=== PATIENT | male | born 1980 | race Caucasian/White ===

== ENCOUNTER 2017-09-05 12:07 | Emergency (ER) | payer MEDICAID ==
[~2017-09-05] VITALS: Ht 180.3 cm; Wt 81.8 kg
[2017-09-05] MEDS ORDERED: ONDANSETRON 2MG/ML, 2ML ONE (12:48)
[2017-09-05] MEDS ORDERED: morphine SULFATE 10 MG/ML, 1ML ONE (12:48)
[2017-09-05 12:58] LABS: HEMATOCRIT 50.2 % (39.2-51.8); WHITE BLOOD COUNT 10.6 x10^3/uL (3.4-10)
[2017-09-05] MEDS ORDERED: SODIUM CHLORIDE 0.9% 1,000ML IVBOLUS ONE (13:00)
[2017-09-05] MEDS ORDERED: SODIUM CHLORIDE FLUSH 10ML SYR IVF ONE (13:00)
[2017-09-05] MEDS ORDERED: MORPHINE SULFATE 4 MG/ML, 1ML IVPush PRN (13:00)
[2017-09-05] MEDS ORDERED: ONDANSETRON 2MG/ML, 2ML IVPush ONE (13:00)
[2017-09-05 13:12] LABS: ASPARTATE AMINO TRANSFERASE 25 U/L (15-37); BLOOD UREA NITROGEN 12 mg/dL (7-18)
[2017-09-05 15:01] VITALS: BP 128/76
== END 2017-09-05 15:15 | disposition home or self-care (01) ==
LOC: ED 14:01
DX: N20.2 Calculus of kidney with calculus of ureter (principal); R31.9 Hematuria, unspecified; I10 Essential (primary) hypertension
CPT/HCPCS: 36415; 71020; 74176; 80053; 81001; 83690; 85025; 96361; 96374; 96375; 99285; J2405; J7030

== ENCOUNTER 2020-10-09 10:18 | Emergency (ER) | payer MEDICAID ==
[~2020-10-09] VITALS: Ht 180.3 cm; Wt 80.0 kg
[2020-10-09] MEDS ORDERED: HYDROcodone/APAP 5/325 TABLET PO ONE (11:30)
[2020-10-09] MEDS ORDERED: ONDANSETRON ODT 4 MG PO ONE (11:30)
[2020-10-09] MEDS ORDERED: HYDROcodone/APAP 5/325 TABLET ONE (11:36)
[2020-10-09] MEDS ORDERED: ONDANSETRON ODT 4 MG ONE (11:36)
[2020-10-09 12:48] VITALS: BP 149/70
--- NOTE | 2020-10-09 12:48 | NUR ---
cms intact post splint application pain improved to 3/10
== END 2020-10-09 12:50 | disposition home or self-care (01) ==
LOC: ED 12:20
DX: S62.366A Nondisplaced fracture of neck of fifth metacarpal bone, right hand, initial encounter for closed fracture (principal); W18.30XA Fall on same level, unspecified, initial encounter; Y93.89 Activity, other specified; Y92.410 Unspecified street and highway as the place of occurrence of the external cause; Y99.8 Other external cause status
CPT/HCPCS: 29125; 73130; 99283; Q0162

== ENCOUNTER 2021-06-30 21:52 | Emergency (ER) | payer MEDICAID ==
[~2021-06-30] VITALS: Ht 180.3 cm; Wt 73.3 kg
[2021-06-30 21:55] VITALS: BP 105/72
--- NOTE | 2021-07-01 00:22 | NUR ---
PT CALLED TO BE DISCHRGED. NA X 1
--- NOTE | 2021-07-01 01:05 | NUR ---
NA X 2
--- NOTE | 2021-07-01 01:25 | NUR ---
NA X 3
== END 2021-07-01 01:28 | disposition left against medical advice (07) ==
LOC: ED 23:59
DX: S09.90XA Unspecified injury of head, initial encounter (principal); R07.89 Other chest pain; I10 Essential (primary) hypertension; X58.XXXA Exposure to other specified factors, initial encounter; Y93.89 Activity, other specified; Y92.009 Unspecified place in unspecified non-institutional (private) residence as the place of occurrence of the external cause; Y99.8 Other external cause status
CPT/HCPCS: 70450; 71045; 99284